=== PATIENT | female | born 1950 | race Caucasian/White ===

== ENCOUNTER → 2017-04-13 | Outpatient (CLI) | payer OTHER, MEDICARE | LOC: BMCIMAGING 08:52 | PROVIDERS: ATTEND Anesthesiology Pain Medicine | DX: M54.5 Low back pain (principal); M51.36 Other intervertebral disc degeneration, lumbar region ==

== ENCOUNTER → 2017-05-19 | Outpatient (CLI) | payer OTHER, MEDICARE | LOC: BMCIMAGING 13:29 | PROVIDERS: ATTEND Anesthesiology Pain Medicine | DX: Z13.820 Encounter for screening for osteoporosis (principal); M85.89 Other specified disorders of bone density and structure, multiple sites ==